=== PATIENT | female | born 1940 | race Caucasian/White ===

== ENCOUNTER 2020-11-20 19:22 | Outpatient (REF) | payer MEDICARE, OTHER, SELFPAY | END 2020-11-20 19:23 | disposition home or self-care (01) | LOC: NCHCN 19:22 | PROVIDERS: PCP Family Medicine; Visit Provider Family Medicine | DX: R30.0 Dysuria (principal) | CPT/HCPCS: 87086 ==

== ENCOUNTER 2020-11-23 20:59 | Outpatient (REF) | payer MEDICARE, OTHER, SELFPAY | END 2020-11-23 21:00 | disposition home or self-care (01) | LOC: NCHCN 20:59 | PROVIDERS: PCP Family Medicine; Visit Provider Family Medicine | DX: R30.0 Dysuria (principal) | CPT/HCPCS: 87086 ==

== ENCOUNTER 2020-11-30 11:02 | Outpatient (REF) | payer MEDICARE, OTHER, SELFPAY ==
[2020-11-30 15:25] LABS: Hemoglobin A1C 6.8 % (<5.7)
[2020-11-30 15:27] LABS: ALT 19 U/L (14-59); AST 18 U/L (15-37); Albumin 3.8 g/dL (3.4-5.0); Alkaline Phosphatase 50 U/L (46-116); Anion Gap 10.8 mmol/L (3-11); BUN 33 mg/dL (7-18); Bilirubin, Total 0.4 mg/dL (0.2-1.0); CO2 26.2 mmol/L (21.0-32.0); CREATININE 1.2 mg/dL (0.55-1.02); Calcium 9.5 mg/dL (8.5-10.1); Calculated LDL 79 mg/dL (<100); Chloride 103 mmol/L (98-107); Cholesterol 184 mg/dL (<200); Estimated GFR 43.34 (mL/min/1.73m2); Glucose 97 mg/dL (74-106); HDL Cholesterol 96 mg/dL (40-60); Potassium 4.5 mmol/L (3.5-5.1); Sodium 140 mmol/L (136-145); Total Protein 7.2 g/dL (6.4-8.2); Triglyceride 48 mg/dL (<150)
[2020-11-30 15:35] LABS: Vitamin D 25 Total 45.9 ng/ml (30-100)
== END 2020-11-30 11:03 | disposition home or self-care (01) ==
LOC: NCHCN 11:02
PROVIDERS: PCP Family Medicine; Visit Provider Family Medicine
DX: E11.9 Type 2 diabetes mellitus without complications (principal); N18.30 Chronic kidney disease, stage 3 unspecified; E55.9 Vitamin D deficiency, unspecified
CPT/HCPCS: 80053; 80061; 82306; 83036